=== PATIENT | female | born 1975 | race Caucasian/White ===

== ENCOUNTER → 2017-05-04 | Outpatient (CLI) | payer OTHER ==
[~2017-05-04] MED LIST: ASPIRIN81 M1 PO; BACTROBAN OINT22 GM PO; BENTYL10 MG PO; Depakote500 MG PO; FLAGYL500 MG PO; KEFLEX500 MG PO; MOTRIN800 MG PO; NKHM; NO DAILY MEDS; ULTRAM50 MG PO; VICODIN 500 MG-1 TAB PO; ZOLOFT100 MG PO
== END | disposition home or self-care (01) ==
LOC: MAMMO 14:23
DX: Z12.31 Encounter for screening mammogram for malignant neoplasm of breast (principal)

== ENCOUNTER → 2017-05-29 | Outpatient (CLI) | payer OTHER | END | disposition home or self-care (01) | LOC: MAMMO 13:30 | DX: N64.89 Other specified disorders of breast (principal); R92.8 Other abnormal and inconclusive findings on diagnostic imaging of breast ==

== ENCOUNTER 2017-08-27 03:44 | Emergency (ER) | payer OTHER ==
[~2017-08-27] VITALS: Ht 170.1 cm; Wt 83.9 kg
[2017-08-27 03:50] VITALS: BP 157/83
[2017-08-27] MEDS ORDERED: AUGMENTIN 875875 MG PO (04:47)
[2017-08-27] MEDS ORDERED: ATIVAN1 MG PO (04:47)
[2017-08-27] MEDS ORDERED: PROAIR HFA8.5 GM INH (04:47)
== END 2017-08-27 05:13 | disposition home or self-care (01) ==
LOC: ED 03:44
DX: J20.9 Acute bronchitis, unspecified (principal); F41.9 Anxiety disorder, unspecified; M25.531 Pain in right wrist; F17.200 Nicotine dependence, unspecified, uncomplicated; Z79.899 Other long term (current) drug therapy; Z79.02 Long term (current) use of antithrombotics/antiplatelets

== ENCOUNTER 2017-11-17 16:23 | Emergency (ER) | payer SELFPAY ==
[~2017-11-17 16:23] MED LIST changes: +ATIVAN1 MG PO; +AUGMENTIN 875875 MG PO; +PROAIR HFA8.5 GM INH
[2017-11-17 16:38] VITALS: BP 121/71
[2017-11-17] MEDS ORDERED: PHENTERMINE H37.5 M1 PO (16:38)
[2017-11-17 17:31] LABS: BASO # 0.1 10*3/uL (0.0-0.1); BASO % 0.4 % (0.0-1.0); EOS # 0.1 10*3/uL (0.0-0.4); EOS % 0.9 % (1.0-4.0); HEMATOCRIT 41.5 % (37.0-47.0); HEMOGLOBIN 13.9 g/dl (12.0-16.0); LYMPH # 2.8 10*3/uL (1.3-4.4); LYMPH % 20.7 % (27.0-41.0); MEAN CELL VOLUME 86.1 fl (81.0-99.0); MEAN CORPUSCULAR HGB 28.8 pg (27.0-31.0); MEAN CORPUSCULAR HGB CONC 33.5 g/dl (33.0-37.0); MEAN PLATELET VOLUME 9.2 fl (9.6-12.3); MONO % 7.5 % (3.0-9.0); NEUT # 9.6 10*3/uL (2.3-7.9); NEUT % 70.2 % (47.0-73.0); PLATELET COUNT AUTOMATED 426 10*3/uL (130-400); RED BLOOD COUNT 4.82 10*6/uL (4.10-5.10); RED CELL DISTRI WIDTH 16.4 % (0-14.5); WHITE BLOOD COUNT 13.7 10*3/uL (4.8-10.8)
[2017-11-17 17:42] LABS: BILIRUBIN NEGATIVE (NEGATIVE); BLOOD 3+ (NEGATIVE); CLARITY SL CLOUDY (CLEAR); COLOR YELLOW (YELLOW); GLUCOSE NEGATIVE (NEGATIVE); KETONE NEGATIVE (NEGATIVE); LEUKO ESTERASE TRACE (NEGATIVE); NITRITE NEGATIVE (NEGATIVE); SPECIFIC GRAVITY 1.025 (1.005-1.030); UROBILINOGEN 0.2 E.U./dl (0.2-1.0)
[2017-11-17 17:50] LABS: ALBUMIN 3.8 gm/dl (3.1-4.5); ALKALINE PHOSPHATASE 72 U/L (45-117); BUN 15 mg/dl (7-24); CHLORIDE 105 mmol/L (98-107); CREATININE 0.72 mg/dL (0.55-1.02); LIPASE 203 U/L (73-393); POTASSIUM 4.2 mmol/L (3.5-5.1); SGOT/AST 13 IU/L (3-35); SGPT/ALT 20 U/L (12-78); SODIUM 138 mmol/L (136-145); TOTAL PROTEIN 7.2 gm/dL (6.4-8.2)
[2017-11-17 17:55] LABS: BACTERIA 2+
[2017-11-17 17:56] LABS: RBC 31-40 rbc/hpf (0-2)
[2017-11-17] MEDS ORDERED: CIPRO500 MG PO (20:02)
[2017-11-17] MEDS ORDERED: NORCO 5-325 TA1 EACH PO (20:02)
[2017-11-17] MEDS ORDERED: FLOMAX0.4 MG PO (20:02)
== END 2017-11-17 20:09 | disposition home or self-care (01) ==
LOC: ED 16:23
PROVIDERS: Physician Assistant
DX: N23 Unspecified renal colic (principal); F17.200 Nicotine dependence, unspecified, uncomplicated; Z79.899 Other long term (current) drug therapy

== ENCOUNTER 2017-12-14 21:56 | Emergency (ER) | payer SELFPAY ==
[~2017-12-14] VITALS: Ht 172.7 cm; Wt 72.6 kg
[~2017-12-14 21:56] MED LIST changes: +CIPRO500 MG PO; +FLOMAX0.4 MG PO; +NORCO 5-325 TA1 EACH PO; +PHENTERMINE H37.5 M1 PO
[2017-12-14 22:01] VITALS: BP 154/94
[2017-12-14] MEDS ORDERED: Motrin,Rufen800 MG PO (23:32)
[2017-12-14] MEDS ORDERED: AUGMENTIN 875875 MG PO (23:32)
== END 2017-12-14 23:35 | disposition home or self-care (01) ==
LOC: ED 21:56
DX: S71.152A Open bite, left thigh, initial encounter (principal); F17.200 Nicotine dependence, unspecified, uncomplicated; Z98.51 Tubal ligation status; Z79.899 Other long term (current) drug therapy; W54.0XXA Bitten by dog, initial encounter; Y93.89 Activity, other specified; Y92.89 Other specified places as the place of occurrence of the external cause; Y99.9 Unspecified external cause status

== ENCOUNTER 2017-12-29 13:07 | Inpatient (IN) | payer MEDICAID ==
[~2017-12-29] VITALS: Ht 170.1 cm; Wt 82.1 kg
--- NOTE | ~2017-12-29 | PROC NOTE ---
[place], [place] PROCEDURE NOTE NAME: [id number] UNIT #: [id number] ROOM: 508 DOCTOR: JULIO C PEARSON MD BIRTHDATE: [birth year] DOS: 12/30/2017 PREOPERATIVE DIAGNOSIS: Suspected left thigh abscess. POSTOPERATIVE DIAGNOSIS: Suspected left thigh abscess. PROCEDURE: Incision and drainage of suspected left thigh abscess. SURGEON: Julio C Pearson MD JUNIOR LEGAL SECRETARY: DIONNE. ANESTHESIA: MAC with local (5 mL of 1% plain lidocaine). INDICATIONS: This is a 42-year-old lady with a history of a dog bite on 12/14/2017, who is here for the above-mentioned procedure. The procedure and its complications were explained to the patient in detail preoperatively. Complications that were discussed included but were not limited to, bleeding, prolonged pain, and damage to lying vital structures. She agreed to proceed. DESCRIPTION OF PROCEDURE: After identifying the patient, the patient was brought to the operating suite and laid in the supine position. After time-out procedure was called, IV sedation was administered by the anesthesia team and the parts were then painted and draped in the usual sterile fashion. Local anesthesia was infiltrated in a transverse fashion and an incision was made, which was deepened in layers. The abscess cavity was entered. There was found to be old blood clot that was evacuated in its entirety and copious amounts of saline was used for irrigation. A specimen was sent for culture and sensitivity prior to irrigating. Abscess cavity was then packed with the help of an inch iodoform. Packing and a dressing was placed. The patient tolerated the procedure well and was taken to the recovery room in stable fashion. Dr. Julio C Pearson, the attending surgeon, was present throughout the operating case. Julio C Pearson MD CM:PROCNOTE:PROCEDURE NOTE [id number] JULIO C PEARSON MD
--- NOTE | ~2017-12-29 | WRIGHTHP ---
[place], [place] PATIENT HISTORY AND PHYSICAL EXAM NAME: MANISH CONTRERAS UNIT #: [id number] ROOM: 508 DOCTOR: ENDER PEDRAZA MD BIRTHDATE: [birth year] DOS: 12/29/2017 HISTORY OF PRESENT ILLNESS: The patient was admitted to hospital with abscess of the left thigh. Yesterday, the patient came to Emergency Department with history of dog bite to the left thigh on 12/14/2017. At first, the patient take Augmentin, but the pain and swelling went on increasing and it became worse and it looks like she got abscess of the left thigh and she came to Emergency Department from where she has been admitted to hospital. A consult with Dr. Pearson who has drained her left abscess yesterday. PAST MEDICAL HISTORY: The patient has history of acute bronchitis, anxiety disorder, renal colic, right upper quadrant pain. PAST SURGICAL HISTORY: The patient had tubal ligation done in 1999, had cervical cancer in the past. SOCIAL HISTORY: She smoked 1 pack of cigarettes daily. She drinks socially and does not do any street drugs. FAMILY HISTORY: History of cancer, coronary heart disease, cerebrovascular disease in the family. She is also having history of obesity. PHYSICAL EXAMINATION: GENERAL: The patient is conscious, alert and oriented, not in any distress. VITAL SIGNS: She is 5 feet, 8 inches tall, weighing 172 pound, and blood pressure is 121/77, pulse 72, respirations 20, temperature is 97.9. HEENT: Her ENT examination is unremarkable. No glandular enlargement. NECK: Trachea is centra. Neck veins are not distended. HEART: Regular, no murmur. LUNGS: Clear. No creps or rhonchi. ABDOMEN: Soft. Liver and spleen not palpable. No area of tenderness. No mass palpable. EXTREMITIES: Incision and drainage done on the left thigh and the pain and swelling getting better. DIAGNOSES: Dog bite with abscess of the left thigh with history of anxiety in the past and bronchitis, tobacco abuse. PLAN OF TREATMENT: The patient will continue receiving antibiotic. Culture and sensitivity was done and will be watched closely. She is getting also naproxen on p.r.n. basis and piperacillin sodium intravenously. [place], [place] PATIENT HISTORY AND PHYSICAL EXAM NAME: MANISH CONTRERAS UNIT #: [id number] ROOM: 508 DOCTOR: ENDER PEDRAZA MD BIRTHDATE: [birth year] ENDER PEDRAZA MD CM:HISPHYS:PATIENT HISTORY AND PHYSICAL EXAMINATION [id number] ENDER PEDRAZA MD 12/30/17 1153 interface
[~2017-12-29 13:07] MED LIST changes: +Motrin,Rufen800 MG PO
[2017-12-29 13:29] VITALS: BP 141/95
[2017-12-29 14:02] LABS: BASO # 0.1 10*3/uL (0.0-0.1); BASO % 0.3 % (0.0-1.0); EOS # 0.3 10*3/uL (0.0-0.4); EOS % 1.9 % (1.0-4.0); HEMATOCRIT 38.7 % (37.0-47.0); LYMPH # 3.2 10*3/uL (1.3-4.4); LYMPH % 18.2 % (27.0-41.0); MEAN CELL VOLUME 86.2 fl (81.0-99.0); MEAN CORPUSCULAR HGB CONC 33.6 g/dl (33.0-37.0); MEAN PLATELET VOLUME 8.9 fl (9.6-12.3); MONO # 0.9 10*3/uL (0.1-1.0); NEUT % 74.2 % (47.0-73.0); PLATELET COUNT AUTOMATED 453 10*3/uL (130-400); RED BLOOD COUNT 4.49 10*6/uL (4.10-5.10); RED CELL DISTRI WIDTH 15.8 % (0-14.5); WHITE BLOOD COUNT 17.5 10*3/uL (4.8-10.8)
[2017-12-29 14:23] LABS: BUN 8 mg/dl (7-24); CHLORIDE 106 mmol/L (98-107); CREATININE 0.71 mg/dL (0.55-1.02); POTASSIUM 4.2 mmol/L (3.5-5.1); SGOT/AST 21 IU/L (3-35); SGPT/ALT 22 U/L (12-78); SODIUM 138 mmol/L (136-145); TOTAL PROTEIN 7.8 gm/dL (6.4-8.2)
[2017-12-29 14:24] LABS: ALKALINE PHOSPHATASE 73 U/L (45-117)
[2017-12-29 14:44] VITALS: BP 146/98
[2017-12-29 16:00] VITALS: BP 100/50; BP 88/68
[2017-12-29 20:00] VITALS: BP 108/76
[2017-12-30] VITALS (8 sets, daily range): BP systolic 81–121; BP diastolic 49–77
[2017-12-30 07:04] LABS: BASO # 0.1 10*3/uL (0.0-0.1); BASO % 0.5 % (0.0-1.0); EOS # 0.8 10*3/uL (0.0-0.4); EOS % 5.9 % (1.0-4.0); HEMATOCRIT 36.2 % (37.0-47.0); HEMOGLOBIN 11.8 g/dl (12.0-16.0); LYMPH # 4.1 10*3/uL (1.3-4.4); MEAN CELL VOLUME 88.7 fl (81.0-99.0); MEAN CORPUSCULAR HGB 28.9 pg (27.0-31.0); MEAN CORPUSCULAR HGB CONC 32.6 g/dl (33.0-37.0); MEAN PLATELET VOLUME 9.4 fl (9.6-12.3); MONO # 0.9 10*3/uL (0.1-1.0); NEUT % 54.2 % (47.0-73.0); PLATELET COUNT AUTOMATED 416 10*3/uL (130-400); RED BLOOD COUNT 4.08 10*6/uL (4.10-5.10); RED CELL DISTRI WIDTH 16.1 % (0-14.5); WHITE BLOOD COUNT 12.9 10*3/uL (4.8-10.8)
[2017-12-30 07:27] LABS: ALBUMIN 3.4 gm/dl (3.1-4.5); BUN 11 mg/dl (7-24); CHLORIDE 111 mmol/L (98-107); SODIUM 142 mmol/L (136-145)
[2017-12-30 07:32] LABS: ALKALINE PHOSPHATASE 62 U/L (45-117); CREATININE 0.69 mg/dL (0.55-1.02); SGOT/AST 15 IU/L (3-35); SGPT/ALT 19 U/L (12-78); TOTAL PROTEIN 6.1 gm/dL (6.4-8.2)
[2017-12-31] VITALS: BP 133/79
[2017-12-31 08:00] VITALS: BP 127/65
[2017-12-31] MEDS ORDERED: DIFLUCAN150 MG PO (12:20)
[2017-12-31] MEDS ORDERED: NORCO 5-325 TA1 EACH PO (13:43)
== END 2017-12-31 14:09 | disposition home or self-care (01) | DRG 872 ==
LOC: ED 13:07 → EDHOLD 14:33 → 5E 14:33
PROVIDERS: Internal Medicine; Nurse Practitioner Family
PROC: 0Y980ZZ Drainage of Left Femoral Region, Open Approach (ICD-10-PCS; principal; 2017-12-30)
DX: A41.9 Sepsis, unspecified organism (principal); L02.416 Cutaneous abscess of left lower limb; S71.152A Open bite, left thigh, initial encounter; F17.210 Nicotine dependence, cigarettes, uncomplicated; B37.3 Candidiasis of vulva and vagina; F41.9 Anxiety disorder, unspecified; W54.0XXA Bitten by dog, initial encounter; Y93.89 Activity, other specified; Y92.89 Other specified places as the place of occurrence of the external cause; Y99.8 Other external cause status; Z98.51 Tubal ligation status; Z85.41 Personal history of malignant neoplasm of cervix uteri; Z80.9 Family history of malignant neoplasm, unspecified; Z82.49 Family history of ischemic heart disease and other diseases of the circulatory system; Z84.89 Family history of other specified conditions

== ENCOUNTER 2018-01-05 08:56 | Emergency (ER) | payer MEDICAID ==
[~2018-01-05] VITALS: Ht 170.1 cm; Wt 79.4 kg
[~2018-01-05 08:56] MED LIST changes: +DIFLUCAN150 MG PO
[2018-01-05 09:02] VITALS: BP 105/82
== END 2018-01-05 09:21 | disposition home or self-care (01) ==
LOC: ED 08:56
DX: L02.416 Cutaneous abscess of left lower limb (principal); F17.200 Nicotine dependence, unspecified, uncomplicated

== ENCOUNTER → 2018-01-08 | Outpatient (CLI) | payer MEDICAID | END | disposition home or self-care (01) | LOC: WOUNDCARE | DX: S71.152A Open bite, left thigh, initial encounter (principal); L03.116 Cellulitis of left lower limb; F17.200 Nicotine dependence, unspecified, uncomplicated; Z72.89 Other problems related to lifestyle; W54.0XXA Bitten by dog, initial encounter; Y93.89 Activity, other specified; Y92.89 Other specified places as the place of occurrence of the external cause; Y99.8 Other external cause status ==

== ENCOUNTER → 2018-01-15 | Outpatient (CLI) | payer MEDICAID | END | disposition home or self-care (01) | LOC: WOUNDCARE 02:33 | DX: S71.152D Open bite, left thigh, subsequent encounter (principal); F17.200 Nicotine dependence, unspecified, uncomplicated; W54.0XXD Bitten by dog, subsequent encounter ==

== ENCOUNTER 2018-05-02 18:58 | Emergency (ER) | payer OTHER ==
[~2018-05-02] VITALS: Ht 170.1 cm; Wt 75.7 kg
[2018-05-02 20:06] VITALS: BP 118/72
[2018-05-02] MEDS ORDERED: CYCLOBENZAPRINE10 MG PO (21:47)
== END 2018-05-02 21:53 | disposition home or self-care (01) ==
LOC: ED 18:58
DX: M54.5 Low back pain (principal); M25.512 Pain in left shoulder; M54.2 Cervicalgia; Z98.51 Tubal ligation status; Z79.899 Other long term (current) drug therapy; V49.59XA Passenger injured in collision with other motor vehicles in traffic accident, initial encounter; Y93.89 Activity, other specified; Y92.413 State road as the place of occurrence of the external cause; Y99.9 Unspecified external cause status

== ENCOUNTER → 2018-08-15 | Outpatient (CLI) | payer OTHER ==
[~2018-08-15] MED LIST changes: +CYCLOBENZAPRINE10 MG PO
[2018-08-15 13:35] LABS: ALBUMIN 3.5 gm/dl (3.1-4.5); ALKALINE PHOSPHATASE 60 U/L (45-117); BUN 10 mg/dl (7-24); CHLORIDE 107 mmol/L (98-107); FREE T4 0.77 ng/dl (0.76-1.46); POTASSIUM 3.5 mmol/L (3.5-5.1); SGOT/AST 12 IU/L (3-35); SGPT/ALT 23 U/L (12-78); SODIUM 140 mmol/L (136-145); TOTAL PROTEIN 7.2 gm/dL (6.4-8.2)
== END | disposition home or self-care (01) ==
LOC: LAB 12:14
PROVIDERS: Family Medicine
DX: F41.8 Other specified anxiety disorders (principal)

== ENCOUNTER 2019-10-27 00:01 | Emergency (ER) | payer OTHER ==
[~2019-10-27] VITALS: Ht 170.1 cm; Wt 71.7 kg
[~2019-10-27 00:01] MED LIST changes: +MEDROL DOSEPAK4 MG PO
== END 2019-10-27 00:42 | disposition left against medical advice (07) ==
LOC: ED 00:01
DX: R21 Rash and other nonspecific skin eruption (principal); R05 Cough; F17.200 Nicotine dependence, unspecified, uncomplicated

== ENCOUNTER → 2020-01-12 | Outpatient (CLI) | payer OTHER | END | disposition home or self-care (01) | LOC: US 13:00 | DX: N93.9 Abnormal uterine and vaginal bleeding, unspecified (principal) ==

== ENCOUNTER → 2020-08-24 | Outpatient (CLI) | payer OTHER | END | disposition home or self-care (01) | LOC: MAMMO 15:30 | PROVIDERS: ATTEND Internal Medicine | DX: Z12.31 Encounter for screening mammogram for malignant neoplasm of breast (principal) ==

== ENCOUNTER 2020-09-29 14:48 | Emergency (ER) | payer OTHER ==
[~2020-09-29] VITALS: Wt 89.4 kg
[2020-09-29 14:54] VITALS: BP 128/74
[2020-09-29] MEDS ORDERED: ALPRAZOLAM0.25 M2 PO (16:06)
== END 2020-09-29 16:09 | disposition home or self-care (01) ==
LOC: ED 14:48
DX: F41.9 Anxiety disorder, unspecified (principal); F17.200 Nicotine dependence, unspecified, uncomplicated; Z79.899 Other long term (current) drug therapy

== ENCOUNTER 2020-10-02 12:33 | Emergency (ER) | payer OTHER ==
[~2020-10-02] VITALS: Ht 170.1 cm; Wt 84.8 kg
[~2020-10-02 12:33] MED LIST changes: +ALPRAZOLAM0.25 M2 PO
[2020-10-02 13:04] LABS: BASO % 0.3 % (0.0-1.0); EOS # 0.1 10*3/uL (0.0-0.4); EOS % 0.5 % (1.0-4.0); HEMATOCRIT 41.1 % (37.0-47.0); LYMPH # 2.1 10*3/uL (1.3-4.4); LYMPH % 18.3 % (27.0-41.0); MEAN CELL VOLUME 92.4 fl (81.0-99.0); MEAN CORPUSCULAR HGB 29.4 pg (27.0-31.0); MEAN CORPUSCULAR HGB CONC 31.9 g/dl (33.0-37.0); MEAN PLATELET VOLUME 9.1 fl (9.6-12.3); MONO # 0.4 10*3/uL (0.1-1.0); MONO % 3.4 % (3.0-9.0); NEUT % 76.7 % (47.0-73.0); PLATELET COUNT AUTOMATED 424 10*3/uL (130-400); RED BLOOD COUNT 4.45 10*6/uL (4.10-5.10); RED CELL DISTRI WIDTH 13.8 % (0-14.5); WHITE BLOOD COUNT 11.7 10*3/uL (4.8-10.8)
[2020-10-02 13:21] LABS: ALKALINE PHOSPHATASE 66 U/L (45-117); BUN 7 mg/dl (7-24); CHLORIDE 108 mmol/L (98-107); CREATININE 0.94 mg/dL (0.55-1.02); POTASSIUM 3.5 mmol/L (3.5-5.1); SGOT/AST 14 IU/L (3-35); SGPT/ALT 24 U/L (12-78); SODIUM 143 mmol/L (136-145); TOTAL PROTEIN 7.8 gm/dL (6.4-8.2)
[2020-10-02 13:23] LABS: B-hCG (QUALITATIVE) NEGATIVE (NEGATIVE)
[2020-10-02 15:18] VITALS: BP 122/68
[2020-10-02 17:37] LABS: BILIRUBIN Negative (Negative); BLOOD Negative (Negative); CLARITY Cloudy (Clear); COLOR Yellow (Yellow); GLUCOSE Negative (Negative); KETONE Negative (Negative); LEUKO ESTERASE 3+ (Negative); NITRITE Positive (Negative); PH 7.5 (4.5-8.0); UROBILINOGEN 0.2 E.U./dl (0.0-1.0)
[2020-10-02 17:44] LABS: BACTERIA 4+; EPITHELIAL CELLS 0-2; RBC 0-2 rbc/hpf (0-2); WBC 51-100 wbc/hpf (0-5)
[2020-10-02 17:47] LABS: URINE AMPHETAMINES < 1000 (1000ng/ml); URINE BARBITURATES < 200 (200ng/ml); URINE BENZODIAZEPINES < 200 (200ng/ml); URINE CANNABINOIDS (THC) < 50 (50ng/ml); URINE COCAINE < 300 (300ng/ml); URINE METHADONE < 300 (300ng/ml); URINE OPIATES < 300 (300ng/ml)
[2020-10-02 18:01] LABS: URINE PHENCYCLIDINE < 25 (25ng/ml)
== END 2020-10-02 18:21 | disposition home or self-care (01) ==
LOC: ED 12:33
PROVIDERS: Emergency Medicine
DX: F10.129 Alcohol abuse with intoxication, unspecified (principal); Z79.899 Other long term (current) drug therapy; Y90.9 Presence of alcohol in blood, level not specified

== ENCOUNTER → 2020-10-09 | Outpatient (CLI) | payer OTHER | END | disposition home or self-care (01) | LOC: COVID19 13:59 | PROVIDERS: ATTEND Internal Medicine | DX: U07.1 COVID-19 (principal) ==

== ENCOUNTER 2021-05-05 06:03 | Emergency (ER) | payer OTHER ==
[2021-05-05 12:00] VITALS: BP 118/71
== END 2021-05-05 13:42 | disposition left against medical advice (07) ==
LOC: ED 06:03
DX: Z00.8 Encounter for other general examination (principal); Z79.899 Other long term (current) drug therapy; Y08.89XA Assault by other specified means, initial encounter; Y93.89 Activity, other specified; Y92.89 Other specified places as the place of occurrence of the external cause; Y99.8 Other external cause status

== ENCOUNTER → 2021-08-04 | Outpatient (CLI) | payer OTHER | END | disposition home or self-care (01) | LOC: COVID19 16:06 | PROVIDERS: ATTEND Student in an Organized Health Care Education/Training Program | DX: Z11.52 Encounter for screening for COVID-19 (principal) ==

== ENCOUNTER 2022-01-14 23:32 | Emergency (ER) | payer OTHER ==
[2022-01-14 23:44] VITALS: BP 117/55
[2022-01-15] MEDS ORDERED: CEPHALEXIN500 M1 PO (00:31)
== END 2022-01-15 00:35 | disposition home or self-care (01) ==
LOC: ED 23:32
DX: S81.812A Laceration without foreign body, left lower leg, initial encounter (principal); W26.8XXA Contact with other sharp object(s), not elsewhere classified, initial encounter; Y93.89 Activity, other specified; Y92.89 Other specified places as the place of occurrence of the external cause; Y99.8 Other external cause status; Z98.51 Tubal ligation status

== ENCOUNTER → 2022-02-23 | Outpatient (CLI) | payer OTHER ==
[~2022-02-23] MED LIST changes: +AMPHETAMINE/DEX30 MG PO; +CEPHALEXIN500 M1 PO; +DULERA 200 MCG8.8 GM INH; +LORAZEPAM0.5 MG PO; +OMEPRAZOLE MAGN20 MG PO
[2022-02-23 19:54] LABS: URINE AMPHETAMINES > 1000 (1000ng/ml); URINE BARBITURATES < 200 (200ng/ml); URINE BENZODIAZEPINES < 200 (200ng/ml); URINE CANNABINOIDS (THC) < 50 (50ng/ml); URINE COCAINE < 300 (300ng/ml); URINE METHADONE < 300 (300ng/ml); URINE OPIATES < 300 (300ng/ml)
[2022-02-23 19:57] LABS: URINE PHENCYCLIDINE < 25 (25ng/ml)
== END | disposition home or self-care (01) ==
LOC: LAB 19:22
PROVIDERS: ATTEND Internal Medicine
DX: F41.9 Anxiety disorder, unspecified (principal)

== ENCOUNTER 2022-03-07 17:06 | Emergency (ER) | payer OTHER ==
[~2022-03-07] VITALS: Ht 170.1 cm; Wt 77.1 kg
[~2022-03-07 17:06] MED LIST changes: -AMPHETAMINE/DEX30 MG PO; -DULERA 200 MCG8.8 GM INH; -LORAZEPAM0.5 MG PO; -OMEPRAZOLE MAGN20 MG PO
[2022-03-07 17:20] VITALS: BP 106/86
[2022-03-07] MEDS ORDERED: AMPHETAMINE/DEX30 MG PO (17:21)
[2022-03-07] MEDS ORDERED: OMEPRAZOLE MAGN20 MG PO (17:22)
[2022-03-07] MEDS ORDERED: LORAZEPAM0.5 MG PO (17:22)
[2022-03-07] MEDS ORDERED: DULERA 200 MCG8.8 GM INH (17:22)
[2022-03-07 18:04] LABS: BASO # 0.1 10*3/uL (0.0-0.1); BASO % 0.4 % (0.0-1.0); EOS # 0.2 10*3/uL (0.0-0.4); EOS % 1.2 % (1.0-4.0); HEMATOCRIT 40.4 % (37.0-47.0); LYMPH # 0.9 10*3/uL (1.3-4.4); LYMPH % 6.8 % (27.0-41.0); MEAN CELL VOLUME 87.4 fl (81.0-99.0); MEAN CORPUSCULAR HGB 28.8 pg (27.0-31.0); MEAN CORPUSCULAR HGB CONC 32.9 g/dl (33.0-37.0); MEAN PLATELET VOLUME 8.6 fl (9.6-12.3); MONO # 0.6 10*3/uL (0.1-1.0); MONO % 4.4 % (3.0-9.0); NEUT # 11.8 10*3/uL (2.3-7.9); NEUT % 86.9 % (47.0-73.0); PLATELET COUNT AUTOMATED 440 10*3/uL (130-400); RED BLOOD COUNT 4.62 10*6/uL (4.10-5.10); RED CELL DISTRI WIDTH 14.3 % (0-14.5); WHITE BLOOD COUNT 13.6 10*3/uL (4.8-10.8)
[2022-03-07 18:22] LABS: ALKALINE PHOSPHATASE 69 U/L (45-117); BUN 11 mg/dl (7-24); CHLORIDE 108 mmol/L (98-107); CREATININE 0.86 mg/dL (0.55-1.02); LIPASE 108 U/L (73-393); POTASSIUM 3.9 mmol/L (3.5-5.1); SGOT/AST 10 IU/L (3-35); SGPT/ALT 17 U/L (12-78); SODIUM 137 mmol/L (136-145); TOTAL PROTEIN 6.8 gm/dL (6.4-8.2)
[2022-03-07 18:34] LABS: BETA-HCG, QUANT < 1.0 mIU/mL (1-3)
[2022-03-07 18:54] LABS: BILIRUBIN Negative (Negative); BLOOD 3+ (Negative); CLARITY Clear (Clear); COLOR Yellow (Yellow); GLUCOSE Negative (Negative); KETONE Negative (Negative); LEUKO ESTERASE Negative (Negative); NITRITE Negative (Negative); PH 5.5 (4.5-8.0); UROBILINOGEN 0.2 E.U./dl (0.0-1.0)
[2022-03-07 19:03] LABS: BACTERIA TRACE; MUCOUS 1+; RBC 41-50 rbc/hpf (0-2); WBC 0-2 wbc/hpf (0-5)
== END 2022-03-07 20:23 | disposition left against medical advice (07) ==
LOC: ED 17:06
PROVIDERS: Family Medicine
DX: N93.8 Other specified abnormal uterine and vaginal bleeding (principal); N83.201 Unspecified ovarian cyst, right side; N70.11 Chronic salpingitis; Z79.899 Other long term (current) drug therapy; Z98.51 Tubal ligation status; Z98.890 Other specified postprocedural states

== ENCOUNTER 2022-12-23 21:47 | Emergency (ER) | payer OTHER ==
[~2022-12-23] VITALS: Ht 170.1 cm
[~2022-12-23 21:47] MED LIST changes: +AMPHETAMINE/DEX30 MG PO; +DULERA 200 MCG8.8 GM INH; +LORAZEPAM0.5 MG PO; +OMEPRAZOLE MAGN20 MG PO
[2022-12-23 21:56] VITALS: BP 137/68
== END 2022-12-24 03:17 | disposition home or self-care (01) ==
LOC: ED 21:47
DX: S09.90XA Unspecified injury of head, initial encounter (principal); Z98.51 Tubal ligation status; Z98.890 Other specified postprocedural states; Z87.891 Personal history of nicotine dependence; Y04.2XXA Assault by strike against or bumped into by another person, initial encounter; Y93.89 Activity, other specified; Y92.89 Other specified places as the place of occurrence of the external cause; Y99.8 Other external cause status

== ENCOUNTER 2023-06-24 09:16 | Emergency (ER) | payer OTHER ==
[~2023-06-24] VITALS: Ht 170.1 cm; Wt 77.1 kg
[2023-06-24 09:22] VITALS: BP 156/95
[2023-06-24 09:59] LABS: BILIRUBIN Negative (Negative); BLOOD Negative (Negative); CLARITY Cloudy (Clear); COLOR Dark Yellow (Yellow); GLUCOSE Negative (Negative); KETONE Trace (Negative); LEUKO ESTERASE Negative (Negative); NITRITE Negative (Negative); SPECIFIC GRAVITY >= 1.030 (1.001-1.030)
[2023-06-24 10:12] LABS: BACTERIA 2+; EPITHELIAL CELLS 21-30; MUCOUS 2+; WBC 0-2 wbc/hpf (0-5)
[2023-06-24 10:13] LABS: BASO # 0.1 10*3/uL (0.0-0.1); BASO % 0.5 % (0.0-1.0); EOS # 0.3 10*3/uL (0.0-0.4); HEMATOCRIT 43.5 % (37.0-47.0); LYMPH # 3.2 10*3/uL (1.3-4.4); LYMPH % 23.6 % (27.0-41.0); MEAN CORPUSCULAR HGB 29.7 pg (27.0-31.0); MEAN CORPUSCULAR HGB CONC 33.3 g/dl (33.0-37.0); MEAN PLATELET VOLUME 9.2 fl (9.6-12.3); MONO # 1.1 10*3/uL (0.1-1.0); MONO % 7.9 % (3.0-9.0); NEUT # 8.8 10*3/uL (2.3-7.9); NEUT % 65.5 % (47.0-73.0); PLATELET COUNT AUTOMATED 412 10*3/uL (130-400); RED BLOOD COUNT 4.89 10*6/uL (4.10-5.10); RED CELL DISTRI WIDTH 14.3 % (0-14.5); WHITE BLOOD COUNT 13.4 10*3/uL (4.8-10.8)
[2023-06-24 10:18] LABS: URINE AMPHETAMINES Negative (1000ng/ml); URINE BARBITURATES Negative (200ng/ml); URINE BENZODIAZEPINES Negative (200ng/ml); URINE CANNABINOIDS (THC) Negative (50ng/ml); URINE COCAINE Positive (300ng/ml); URINE METHADONE Negative (300ng/ml); URINE OPIATES Negative (300ng/ml); URINE PHENCYCLIDINE Negative (25ng/ml)
[2023-06-24 10:25] LABS: ACT PARTIAL THROMBO TIME 27.3 SECONDS (20.0-32.1)
[2023-06-24 10:35] LABS: ALKALINE PHOSPHATASE 76 U/L (46-116); BUN 12 mg/dl (9-23); CHLORIDE 104 mmol/L (98-107); LIPASE 39 U/L (12-53); POTASSIUM 3.5 mmol/L (3.4-5.1); SGPT/ALT 14 U/L (10-49); TOTAL PROTEIN 7.1 gm/dL (6.0-8.0)
[2023-06-24 10:36] LABS: ETHYL ALCOHOL < 3.0 mg/dl (<3)
[2023-06-24] MEDS ORDERED: CIPRO500 MG PO (10:58)
== END 2023-06-24 11:01 | disposition home or self-care (01) ==
LOC: ED 09:16
PROVIDERS: Internal Medicine
DX: N39.0 Urinary tract infection, site not specified (principal); R22.41 Localized swelling, mass and lump, right lower limb; Z79.899 Other long term (current) drug therapy; Z98.51 Tubal ligation status; Z85.41 Personal history of malignant neoplasm of cervix uteri

== ENCOUNTER 2024-01-09 13:46 | Emergency (ER) | payer OTHER ==
[2024-01-09 13:46] VITALS: BP 137/72
== END 2024-01-09 13:50 | disposition left against medical advice (07) ==
LOC: ED 13:46
DX: R53.83 Other fatigue (principal); Z53.21 Procedure and treatment not carried out due to patient leaving prior to being seen by health care provider

== ENCOUNTER → 2024-04-30 | Outpatient (CLI) | payer OTHER | END | disposition home or self-care (01) | LOC: RAD 12:53 | PROVIDERS: ATTEND Nurse Practitioner Family | DX: M25.571 Pain in right ankle and joints of right foot (principal) ==

== ENCOUNTER 2024-06-08 08:05 | Emergency (ER) | payer OTHER ==
[~2024-06-08] VITALS: Ht 170.1 cm; Wt 75.7 kg
[2024-06-08 08:14] VITALS: BP 152/82
[2024-06-08] MEDS ORDERED: CEPHALEXIN 500 MG CAP PO ONE (08:25)
[2024-06-08] MEDS ORDERED: Acetaminophen/Oxycodone 5 MG/325 MG TABLET PO ONE (08:25)
[2024-06-08] MEDS ORDERED: CEPHALEXIN500 M1 PO ×2 (08:58→12:36)
[2024-06-08] MEDS ORDERED: HYDROCODONE-AC1 EAC1 PO (08:58)
== END 2024-06-08 09:06 | disposition home or self-care (01) ==
LOC: ED 08:05
DX: S66.322A Laceration of extensor muscle, fascia and tendon of right middle finger at wrist and hand level, initial encounter (principal); F41.9 Anxiety disorder, unspecified; F31.9 Bipolar disorder, unspecified; Z98.51 Tubal ligation status; Z98.890 Other specified postprocedural states; Z90.710 Acquired absence of both cervix and uterus; W26.8XXA Contact with other sharp object(s), not elsewhere classified, initial encounter; Y93.89 Activity, other specified; Y92.89 Other specified places as the place of occurrence of the external cause; Y99.8 Other external cause status

== ENCOUNTER → 2024-06-17 | Day surgery (SDC) | payer OTHER ==
[~2024-06-17] VITALS: Ht 172.7 cm; Wt 77.1 kg
[~2024-06-17] MED LIST changes: +BUPIVACAINE 0.5% 10 ML VIAL ONE; +CBD OIL; +HYDROCODONE-AC1 EAC1 PO; +Lactated Ringer's Solution 1,000 ML IV ONE; +Lidocaine Hydrochloride 2% 10 ML AMP IM ONE; +Lidocaine Hydrochloride 5 ML AMP ONE; +Midazolam Hydrochloride 2 MG/2 ML VIAL IV ONE; +PROPOFOL 200 MG/20 ML VIAL IV ONE; +ceFAZolin sodium/sodium chlor 20 ML IV ONE; +fentaNYL CITRATE 100 MCG/2 ML VIAL IV ONE
[2024-06-17 07:30] VITALS: BP 152/81
[2024-06-17 08:23] LABS: BUN 12 mg/dl (9-23); CHLORIDE 108 mmol/L (98-107); POTASSIUM 3.9 mmol/L (3.4-5.1)
[2024-06-17 10:04] VITALS: BP 144/94
[2024-06-17 10:19] VITALS: BP 125/94
[2024-06-17 10:34] VITALS: BP 147/87
== END | disposition home or self-care (01) ==
LOC: SDC 06-16 12:30
PROVIDERS: ATTEND Orthopaedic Surgery
DX: S66.322A Laceration of extensor muscle, fascia and tendon of right middle finger at wrist and hand level, initial encounter (principal); S66.324A Laceration of extensor muscle, fascia and tendon of right ring finger at wrist and hand level, initial encounter; S61.411A Laceration without foreign body of right hand, initial encounter; F41.9 Anxiety disorder, unspecified; F32.9 Major depressive disorder, single episode, unspecified; F17.210 Nicotine dependence, cigarettes, uncomplicated; Z85.41 Personal history of malignant neoplasm of cervix uteri; Z85.42 Personal history of malignant neoplasm of other parts of uterus; Z90.710 Acquired absence of both cervix and uterus; Z98.890 Other specified postprocedural states; X58.XXXA Exposure to other specified factors, initial encounter; Y93.89 Activity, other specified; Y92.89 Other specified places as the place of occurrence of the external cause; Y99.8 Other external cause status